=== PATIENT | female | born 1965 | race Caucasian/White ===

== ENCOUNTER 2016-09-07 13:52 | Outpatient (CLI) | payer OTHER ==
--- NOTE | 2016-09-07 15:17 | DIAGNOSTIC IMAGING REPORT ---
PROCEDURE: US COMPLETE PELVIC W/TRANSVAG INDICATION: IRREGULAR MENSTRUAL BLEEDING TECHNIQUE: Transabdominal and endovaginal hernández scale and color Doppler sonographic images of the female pelvis were obtained. COMPARISON: None. FINDINGS: TRANSABDOMINAL SCANS: Anteverted uterus measures 9.8 x 6.6 x 5.7 cm. Normal contour and heterogeneous echotexture. Normal adnexa without suspicious mass. The visible portion of the urinary bladder is normal. No significant free pelvic fluid. TRANSVAGINAL SCANS: The uterus is anteverted and anteflexed in position and has a heterogeneous myometrial echotexture. There are Nabothian cysts in the cervix which otherwise appears normal. There are ill-defined rounded myometrial masses with mildly increased vascularity in the anterior right fundus, mid fundus, and one in the submucosal mid uterus immediately adjacent to the endometrial stripe. These range in size from 1.6-2.1 cm. There is mildly increased vascularity in the fibroids. The endometrium is partially obscured by submucosal fibroid, but measures between five and 9 mm where it is able to be seen. No endometrial fluid collections or suspicious masses. Neither ovary was seen. No suspicious adnexal mass or free pelvic fluid. IMPRESSION: 1. Fibroid uterus with at least one submucosal fibroid partially obscuring the fundal endometrium, may be contributing to dysfunctional uterine bleeding. 2. Fundal endometrial thickness is not well assessed but where it can be seen, is within normal limits for perimenopausal female. 3. Neither ovary was well seen during this exam, but no suspicious adnexal masses.
== END 2016-09-07 23:00 ==
LOC: US SRH 13:52
DX: D25.0 Submucous leiomyoma of uterus (principal); R93.8 Abnormal findings on diagnostic imaging of other specified body structures